=== PATIENT | female | born 2000 | race Caucasian/White ===

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

== ENCOUNTER 2022-12-25 17:27 | Emergency (ER) | payer MEDICAID, OTHER | END 2022-12-25 19:50 | disposition home or self-care (01) | LOC: MW.ED 17:27 | DX: S09.90XA Unspecified injury of head, initial encounter (principal); W20.8XXA Other cause of strike by thrown, projected or falling object, initial encounter | CPT/HCPCS: 99282; 99283 ==